=== PATIENT | male | born 1965 | race Caucasian/White ===

== ENCOUNTER 2022-10-14 22:54 | Observation (INO) | payer MEDICARE, OTHER ==
[~2022-10-14] VITALS: Ht 177.8 cm; Wt 112.0 kg
[2022-10-15 00:43] VITALS: BP 134/91
[2022-10-15] MEDS ORDERED: TAMS.4ER PO (00:49)
[2022-10-15] MEDS ORDERED: Mirtazapine45 M1 PO (00:49)
[2022-10-15] MEDS ORDERED: ABILIFY MYCITE20 M2 PO (00:49)
[2022-10-15] MEDS ORDERED: THERA-D2000 UNIT PO (00:50)
[2022-10-15] MEDS ORDERED: MAGNESIUM250 M1 PO (00:50)
[2022-10-15] MEDS ORDERED: ASCO500 PO (00:51)
[2022-10-15] MEDS ORDERED: MELATONIN5 M1 PO (00:51)
[2022-10-15] MEDS ORDERED: VITAMIN B-121000 MCG PO (00:52)
[2022-10-15] MEDS ORDERED: LIONS MANE PO (00:53)
[2022-10-15] MEDS ORDERED: VERA120 PO (00:54)
[2022-10-15] MEDS ORDERED: Co Q-10300 MG PO (00:54)
[2022-10-15] MEDS ORDERED: CLON1 PO (00:55)
[2022-10-15] MEDS ORDERED: ALBU90OI INH (00:55)
[2022-10-15] MEDS ORDERED: BALANCE OF NATURE PO (00:56)
--- NOTE | 2022-10-15 01:38 | NUR ---
0100 PT ARRIVED TO ROOM FROM [facility] A DIRECT ADMIT VIA AMBULANCE TRANSFER, CAME TO ROOM VIA GURNEY. IN STABLE CONDITION. PT REPORTS N/T IN FINGERTIPS, HE DOES NOT KNOW FOR HOW LONG. 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 PT HAS OCCASIONAL MUSCLE SPASMS R/T A REACTION TO [place] YEARS AGO. NO OTHER APPARENT SIGNS OF DISTRESS AT THIS TIME. CALL LIGHT IS IN REACH. BED ALARM IS ON. PT DENIES NEED FOR ANYTHING ELSE AT THIS TIME.
[2022-10-15] MEDS ORDERED: SODIUM FLUORID100 ML DT (02:56)
[2022-10-15] MEDS ORDERED: NURTEC ODT75 MG PO (03:01)
[2022-10-15 03:23] VITALS: BP 138/87
--- NOTE | 2022-10-15 03:52 | NUR ---
REPORT RECIEVED FROM HARSHAL JO. ASSUMED CARE OF PATIENT AND I AGREE W/HER ASSESSMENT FINDINGS. NEURO OBS REMAIN STABLE AND PREVIOUSLY DESCRIBED. PT KNOWS TO CALL FOR ASSIST PRN. BED ALARM ON FOR POSSIBLE FALL RISK. FIRE IGNITION ASSESSMENT AND EDUCATION COMPLETED.
--- NOTE | 2022-10-15 04:31 | NUR ---
SUMMARY: PT A/OX3-4, CALLS APPROPRIATELY TO SPECIFY NEEDS AND IS PLEASANT AND COOPERATIVE W/CARE. BED ALARM IS ON FOR FALL RISK, FORGETFULLNESS AND POSSIBLE IMPULSIVITY. Q4H NEURO OBS REMAIN STABLE/UNCHANGED W/ONLY NEW DEFICITS BEING NUMBNESS/TINGLING OF UNKNOWN DURATION AND SOME DIFFICULTY W/SHORT TERM MEMORY AND RECOLLECTION OF RECENT EVENTS. REMINDERS PROVIDED PRN. MRI PLANNED FOR TODAY AND PT WILL NEED PREMEDICATED W/ATIVAN PRN, WILL ENSURE DAY STAFF AWARE. HE'S SBA OOB AND HAS DENIED DIZZINESS W/AMBULATION SINCE ARRIVAL TO UNIT. CPAP TOLERATED AT HS W/CONT BIOX INTACT. NO ACUTE CHANGES, VSS/AFEBRILE. WCTM AND REPORT TO DAY RN.
[2022-10-15 04:57] LABS: BASOPHILS ABSOLUTE AUTO 0.05 K/mm3 (0.00-0.23); BASOPHILS PERCENT AUTO 1 % (0-2); EOSINOPHILS ABSOLUTE AUTO 0.29 K/mm3 (0.00-0.68); EOSINOPHILS PERCENT AUTO 3 % (0-6); Hematocrit 43.5 % (37.0-53.0); Hemoglobin 15.2 g/dL (13.5-17.5); IMMATURE GRAN ABSOLUTE AUTO 0.04 K/mm3 (0.00-0.10); IMMATURE GRAN PERCENT AUTO 0 % (0-1); LYMPHOCYTES ABSOLUTE AUTO 2.62 K/mm3 (0.84-5.20); LYMPHOCYTES PERCENT AUTO 26 % (21-46); MONOCYTES ABSOLUTE AUTO 0.87 K/mm3 (0.16-1.47); MONOCYTES PERCENT AUTO 9 % (4-13); Mean Corpuscular HGB 31.3 pg (26.0-34.0); Mean Corpuscular HGB Conc 34.9 g/dL (31.5-36.5); Mean Corpuscular Volume 90 fL (80-100); Mean Platelet Volume 9.5 fL (9.1-12.4); NEUTROPHILS ABSOLUTE AUTO 6.12 K/mm3 (1.96-9.15); NEUTROPHILS PERCENT AUTO 61 % (41-73); Platelet Count 233 K/mm3 (150-400); RDW Coefficient Variation 12.6 % (11.7-14.2); RDW Standard Deviation 41.2 fL (35.1-46.3); Red Blood Cell Count 4.86 M/mm3 (4.30-5.90); White Blood Cell Count 9.99 K/mm3 (4.00-11.30)
[2022-10-15 05:35] LABS: Alanine Aminotransfer (ALT/SGP 24 U/L (12-78); Albumin, Blood 3.6 g/dL (3.4-5.0); Albumin/Globulin Ratio 1.2 (0.8-1.8); Alk Phos 59 U/L (50-136); Anion Gap 7 mmol/L (6-16); Aspartate Aminotrans (AST/SGOT 23 U/L (12-37); Bilirubin, Total 0.5 mg/dL (0.1-1.0); Blood Urea Nitrogen 9 mg/dL (8-24); Bun/Creatinine Ratio 13.4 (12.0-20.0); CHOL/HDL RATIO 4.4; CO2, Blood 26 mmol/L (21-32); Calcium, Blood 8.7 mg/dL (8.5-10.1); Chloride, Blood 110 mmol/L (98-108); Cholesterol 157 mg/dL (50-200); Creatinine, Blood 0.67 mg/dL (0.60-1.20); Globulin, Blood 3.1 g/dL (2.2-4.0); Glomerular Filtration Rate 110 (60-); Glucose, Blood 99 mg/dL (70-99); HDL Cholesterol 36 mg/dL (>39); LDL/HDL RATIO 2.7; Low Density Lipoprotein Chol 96 mg/dL (0-110); Potassium, Blood 3.4 mmol/L (3.5-5.5); Sodium, Blood 143 mmol/L (136-145); Total Protein, Blood 6.7 g/dL (6.4-8.2); Triglycerides 124 mg/dL (30-160); Very Low Density Lipoprot Chol 24 mg/dL (6-32)
[2022-10-15 07:23] VITALS: BP 139/87
[2022-10-15 14:49] VITALS: BP 148/92
--- NOTE | 2022-10-15 17:44 | NUR ---
SHIFT SUMMARY- PT A/O, PLESANT AND COOPERATIVE. HE SLEPT INTERMITENTLY DURING THIS SHIFT. C/O CHEST PAIN THIS MORNING. EKG PREFORMED WITH NORMAL RESULTS. NOTIFIED DR. DO. PT WENT FOR MRI THIS AFTERNOON PREMEDICATED. PT TOLORATED TEST WELL. HIS BED IS IN THE LOW POSITON AND CALL LIGHT IS WITHIN REACH. HE WAS EDUCATED ON FIRE SAFTY.
[2022-10-15 19:27] VITALS: BP 139/93
[2022-10-16 03:27] VITALS: BP 138/85
--- NOTE | 2022-10-16 04:16 | NUR ---
SHIFT SUMMARY ADMITTED FOR CVA. FULL CODE. HE IS HOPEFUL FOR DC HOME TO [place]. HE HAS N/T OF EXTREMETIES AND SHORT TERM MEMORY LOSS. NO EVIDENCE DISCOVERED OF CVA IN IMAGING. Q4 NEURO CHECKS ARE CLEAR EXCEPT FOR THE AFOREMENTIONED. HE HAS A HX OF TOURETTE'S/TICS, CHRONIC HEADACHES, ANXIETY. HE USES A CPAP @ HS, RA @ AM. REGULAR DIET. STANDBY ASSIST W/FWW - BRP. PHYSICAL & OCCUPATIONAL THERAPIES ARE ASSISTING WITH THIS PT. FIRE SAFETY AND IGNITION RISK HAS BEEN ASSESSED AND DISCUSSED WITH THIS PT.
[2022-10-16 06:06] LABS: Bun/Creatinine Ratio 18.8 (12.0-20.0); Calcium, Blood 8.9 mg/dL (8.5-10.1); Creatinine, Blood 0.8 mg/dL (0.60-1.20); Potassium, Blood 3.5 mmol/L (3.5-5.5)
[2022-10-16 07:18] VITALS: BP 124/99
[2022-10-16] MEDS ORDERED: ASPI81CH PO (12:00)
[2022-10-16] MEDS ORDERED: Aspir 8181 MG PO (12:24)
--- NOTE | 2022-10-16 14:53 | NUR ---
DISCHARGE NOTE PT PICKED UP BY HIS FRIEND, IV REMOVED SUCCESSFULLY. DISCHARGE PAPERWORK AND EDUCATION PROVIDED. MEDICATIONS FAXED TO THE PHARMACY OF HIS CHOICE.
== END 2022-10-16 16:38 | disposition home or self-care (01) ==
LOC: MEDS 22:54 → ENPENDDIS 10-16 11:30 → MEDS 10-16 16:38
PROVIDERS: Internal Medicine; Student in an Organized Health Care Education/Training Program; ADMIT Internal Medicine
DX: G45.4 Transient global amnesia (principal); F95.2 Tourette's disorder; G43.909 Migraine, unspecified, not intractable, without status migrainosus; G47.33 Obstructive sleep apnea (adult) (pediatric); N40.0 Benign prostatic hyperplasia without lower urinary tract symptoms; I10 Essential (primary) hypertension; J45.909 Unspecified asthma, uncomplicated; Z88.0 Allergy status to penicillin; Z88.8 Allergy status to other drugs, medicaments and biological substances
CPT/HCPCS: 36415; 70551; 80048; 80053; 80061; 85025; 93005; 93010; 94640; 94660; 94664; 94762; 96372; 97162; 97165; 97530; A9270; G0378; J1650